=== PATIENT | male | born 2000 | race Caucasian/White ===

== ENCOUNTER 2020-07-07 06:30 | Emergency (ER) | payer SELFPAY ==
[~2020-07-07] VITALS: Ht 167.7 cm; Wt 113.4 kg
[2020-07-07 06:39] VITALS: BP 151/97
[2020-07-07] MEDS ORDERED: ACHD5005 PO (06:58)
[2020-07-07] MEDS ORDERED: PENI500T PO (06:58)
--- NOTE | 2020-07-07 06:59 | ED EENT ---
History of Present Illness General Chief Complaint: Dental Problems/Pain Stated Complaint: DENTAL PAIN Nursing Triage Note: PT AMBULATE TO ROOM FS02 WITH C/O BOTTOM LEFT DENTAL PAIN STARTING YESTERDAY MORNING. PT REPORTS USING VINIGAR AND ALEVE WITHOUT RELIEF. Source: patient History of Present Illness Date Seen by Provider: Jul 07, 2020 Time Seen by Provider: 06:54 Initial Comments Left central lower incisor dental pain past 24 hours. No improvement with vinegar and [id number] Timing/Duration: gradual Severity: moderate Location: dental Prearrival Treatment: no prearrival treatment Modifying Factors: Improves With Other (HEENT) Associated Symptoms: facial pain/swelling Allergies and Home Medications Allergies Coded Allergies: No Known Allergies (Verified Allergy, Unknown, 07/07/20) Patient Home Medication List Home Medication List Reviewed: Yes Review of Systems Review of Systems Constitutional: no symptoms reported Eyes: No Symptoms Reported Nose: no symptoms reported Mouth: see HPI Throat: no symptoms reported Respiratory: no symptoms reported Cardiovascular: no symptoms reported Gastrointestinal: no symptoms reported Past Ienzmni-Ivbybv-Dwnvys Hx Past Med/Social Hx: Reviewed Nursing Past Med/Soc Hx Patient Social History Alcohol Use: Occasionally Uses Recreational Drug Use: No Smoking Status: Current Everyday Smoker Type Used: Cigarettes 2nd Hand Smoke Exposure: Yes Recent Foreign Travel: No Contact w/Someone Who Travel: No Recent Infectious Disease Expo: No Recent Hopitalizations: No Physical Abuse: No Sexual Abuse: No Mistreated: No Fear: No Seasonal Allergies Seasonal Allergies: No Past Medical History Surgeries: No Respiratory: No Cardiac: No Neurological: No Genitourinary: No Gastrointestinal: No Musculoskeletal: No Endocrine: No HEENT: No Cancer: No Psychosocial: No Integumentary: No Blood Disorders: No Physical Exam Vital Signs Vital Signs - First Documented 07/07/20 06:39 Temp 36.6 Pulse 90 Resp 18 B/P (MAP) 151/97 (115) Height, Weight, BMI Height: '" Weight: lbs. oz. kg; 40.00 BMI Method: General Appearance: WD/WN, no apparent distress Nose: normal inspection Mouth/Throat: other (left central lower incisor tenderness, no appreciated dental decay or gingival swelling) Neck: non-tender, full range of motion Progress/Results/Core Measures Results/Orders Vital Signs/I&O 07/07/20 06:39 Temp 36.6 Pulse 90 Resp 18 B/P (MAP) 151/97 (115) Blood Pressure Mean: 115 Departure Impression Primary Impression: Dental caries Additional Impression: Pain, dental Disposition: 01 HOME, SELF-CARE Condition: Stable Departure-Patient Inst. Decision time for Depature: 06:56 Referrals: NO,LOCAL PHYSICIAN (PCP/Family) Primary Care Physician Patient Instructions: Dental Pain (DC) Add. Discharge Instructions: Please follow up with a dentist as soon as possible next 3-4 days. All discharge instructions reviewed with patient and/or family. Voiced understanding. Scripts Penicillin V Potassium (Penicillin V Potassium) 500 Mg Tablet 500 MG PO QID, #40 TAB Prov: LEONIE PEREZ DO 07/07/20 Hydrocodone/Acetaminophen (Hydrocodone-Acetamin 5-325 mg) 1 Each Tablet 1 EACH PO q6 PRN for PAIN-MODERATE (5-7), #5 TAB Prov: LEONIE PEREZ DO 07/07/20 LEONIE PEREZ DO Jul 07, 2020 06:58
== END 2020-07-07 07:03 | disposition home or self-care (01) ==
LOC: ER FS 06:33
DX: K02.9 Dental caries, unspecified (principal); K08.89 Other specified disorders of teeth and supporting structures; F17.210 Nicotine dependence, cigarettes, uncomplicated
CPT/HCPCS: 99282